=== PATIENT | male | born 1965 | race Caucasian/White ===

== ENCOUNTER 2017-05-08 09:22 | Day surgery (SDC) | payer BC ==
[~2017-05-08 09:22] MED LIST: AMBIEN10 MG PO; ASPIR 8181 MG PO; COZAAR100 M1 PO; DULERA 200 MCG/13 GM IH; EFFEXOR XR150 M1 PO; EFFEXOR75 MG; ENALAPRIL MALEAT5 MG PO; EPIPEN0.3 MG/0.3 IM; FENOFIBRATE200 MG PO; FISH OIL 1,0001 CA PO; GLIMEPIRIDE2 MG PO; GLUCOPHAGE1000 MG PO; GLUCOTROL10 M1 PO; GLUCOTROL5 M1 PO; GLYBURIDE5 MG PO; LIPITOR40 M1 PO; LOSARTAN POTASS50 MG PO; LOVAZA1 GM/CAP PO; MOBIC7.5 MG; NIASPAN500 MG PO; NORCO 5/3251 TAB PO; NORVASC5 M2 PO; NORVASC5 MG; OMACOR1 G; OMEPRAZOLE20 MG PO; PREDNISONE20 MG; PREDNISONE20 MG PO; PRILOSEC20 MG PO; PROTONIX40 MG PO; TAGAMET400 MG PO; TOUJEO SOL300 UNIT/1 SC; TRILIPIX135 M1 PO; TRILIPIX135 MG; VICTOZA0.6 MG/0.1 SQ; VITAMIN D250000 UNI1 PO; WELLBUTRIN XL150 M1 PO; XIGDUO XR 5 MG1 EAC1 PO
[2017-05-08 16:00] LABS: URINE LEUKOCYTE ESTERASE NEGATIVE (NEG); URINE PROTEIN MODERATE (NEG); URINE SPECIFIC GRAVITY 1.025 (1.003-1.030)
[2017-05-08 16:09] LABS: URINE APPEARANCE CLOUDY; URINE BILIRUBIN NEGATIVE (NEG); URINE BLOOD LARGE (NEG); URINE COLOR YELLOW; URINE GLUCOSE (UA) LARGE (NEG); URINE KETONE SMALL (NEG); URINE NITRITE NEGATIVE (NEG)
[2017-05-08 16:14] LABS: URINE AMORPHOUS 1+; URINE EPITHELIAL CELLS RARE /[HPF] (0-10)
== END 2017-05-08 16:35 ==
LOC: SRG 09:22 → SHSB 09:23 → ORW 11:03 → SHSB 12:50
PROVIDERS: Urology
PROC: 0T5B8ZZ Destruction of Bladder, Via Natural or Artificial Opening Endoscopic (ICD-10-PCS; principal; 2017-05-08)
DX: N30.01 Acute cystitis with hematuria (principal); N30.21 Other chronic cystitis with hematuria; I10 Essential (primary) hypertension; R20.2 Paresthesia of skin; E11.9 Type 2 diabetes mellitus without complications; F32.9 Major depressive disorder, single episode, unspecified; E66.01 Morbid (severe) obesity due to excess calories; Z68.36 Body mass index [BMI] 36.0-36.9, adult; Z79.84 Long term (current) use of oral hypoglycemic drugs; Z79.4 Long term (current) use of insulin; Z79.899 Other long term (current) drug therapy; Z88.0 Allergy status to penicillin; Z88.1 Allergy status to other antibiotic agents; Z87.891 Personal history of nicotine dependence; Z90.49 Acquired absence of other specified parts of digestive tract; Z96.641 Presence of right artificial hip joint; Z98.890 Other specified postprocedural states
CPT/HCPCS: J0690; J1170